=== PATIENT | male | born 1985 | race Caucasian/White ===

== ENCOUNTER 2023-09-22 15:31 | Inpatient (IN) | payer SELFPAY ==
[2023-09-22 16:01] VITALS: BMI 29.3
[2023-09-22] MEDS ORDERED: Morphine 4 MG/ML VIAL SLOW IVP PRN (16:55)
[2023-09-22] MEDS ORDERED: Acetaminophen 650 MG Suppository PR PRN (17:14)
[2023-09-22] MEDS: Ondansetron PF 4 MG/2 ML Vial IVP PRN (17:19)
[2023-09-22] MEDS ORDERED: hydrALAZINE 20 MG/ML VIAL SLOW IVP PRN (17:20)
[2023-09-22] MEDS ORDERED: Lorazepam 2 MG/ML VIAL IM PRN (17:28)
[2023-09-22] MEDS ORDERED: Electrolyte Replacement Protocol FS SCH (17:30)
[2023-09-22] MEDS: Thiamine HCl 200 MG/2 ML VIAL SLOW IVP SCH (17:58)
[2023-09-22] MEDS: Lactated Ringer's 1,000 ML IV SCH ×2 (18:35→21:49)
[2023-09-22] MEDS: fentaNYL 50 mcg/mL 1 mL Vial SLOW IVP PRN ×3 (18:48→23:37)
[2023-09-22] MEDS: Nicotine 14 MG PATCH TD PRN (18:49)
[2023-09-22] MEDS ORDERED: fentaNYL 50 mcg/mL 1 mL Vial SLOW IVP SCH (21:45)
[2023-09-22] MEDS: Lorazepam 2 MG/ML VIAL SLOW IVP PRN (23:50)
[2023-09-23] MEDS: fentaNYL 50 mcg/mL 1 mL Vial SLOW IVP PRN ×8 (01:47→22:52)
[2023-09-23] MEDS: Lorazepam 2 MG/ML VIAL SLOW IVP PRN (04:03)
[2023-09-23] MEDS: Lactated Ringer's 1,000 ML IV SCH ×3 (04:41→22:52)
[2023-09-23 06:15] LABS: #Eosinphils 0.1 thou/uL (0.0-0.7); #Monocytes 0.3 thou/uL (0.11-0.59); #Neutrophils 3.3 thou/uL (1.40-6.50); %Basophils 0.6 % (0.0-1.0); %Eosinophils 2.9 % (0.0-10.0); %Lymphocytes 21.8 % (21.0-51.0); %Monocytes 6.7 % (0.0-10.0); %Neutrophils 67.8 % (42.0-75.0); Hematocrit 35.5 % (42.0-52.0); Hemoglobin 12.2 g/dL (14.0-18.0); Mean Corpuscular HGB CONC 34.4 g/dL (32.0-36.0); Mean Corpuscular Hemoglobin 34.2 pg (27.0-31.0); Mean Corpuscular Volume 99.4 fl (78.0-98.0); Mean Platelet Volume 10.4 fL (7.4-10.4); Platelet Count 97 10x3/uL (130-400); RBC Distribution Width 12.7 % (11.5-14.5); Red Blood Cell (RBC) Count 3.57 mill/uL (4.70-6.10); White Blood Cell (WBC) Count 4.9 10x3/uL (4.8-10.8)
[2023-09-23 06:47] LABS: ALT (SGPT) 109 U/L (8-55); AST (SGOT) 129 U/L (5-34); Albumin 3.7 g/dL (3.5-5.0); Alkaline Phosphatase 99 U/L (40-110); Anion Gap 11 mmol/L (10-20); BUN (Urea Nitrogen) 8 mg/dL (8.9-20.6); Bilirubin, Total 2.8 mg/dL (0.2-1.2); Calc. Creatinine Clearance 164 mL/min (70-130); Calcium 8.4 mg/dL (7.8-10.44); Carbon Dioxide 24 mmol/L (22-29); Chloride 105 mmol/L (98-107); Estimated GFR 120; Globulin 2.4 g/dL (2.4-3.5); Glucose 101 mg/dL (70-105); Magnesium 1.3 mg/dL (1.6-2.6); Potassium 3.5 mmol/L (3.5-5.1); Protein, Total 6.1 g/dL (6.0-8.3); Sodium 136 mmol/L (136-145)
[2023-09-23] MEDS ORDERED: Magnesium Sulfate In Water 4 GM in Premix 1 BAG IVPB SCH (08:00)
[2023-09-23] MEDS: Pantoprazole 40 MG VIAL IVP SCH (08:46)
[2023-09-23] MEDS: Potassium Chloride 20 MEQ in Premix 1 BAG IVPB SCH ×2 (08:47→11:03)
[2023-09-23] MEDS ORDERED: traMADol HCl 50 MG TAB PO PRN (10:00)
[2023-09-23 14:08] LABS: Magnesium 2.4 mg/dL (1.6-2.6)
[2023-09-23 15:41] LABS: Potassium 3.9 mmol/L (3.5-5.1)
[2023-09-23] MEDS: Thiamine HCl 200 MG/2 ML VIAL SLOW IVP SCH (17:57)
[2023-09-23 22:35] LABS: Campy jejuni + coli by PCR Negative (Negative); STEC Shiga Toxin 1+2 Negative (Negative); Salmonella spp. by PCR Negative (Negative); Shigella spp + EIEC by PCR Negative (Negative)
[2023-09-24] MEDS: Lactated Ringer's 1,000 ML IV SCH ×5 (03:23→22:37)
[2023-09-24] MEDS: fentaNYL 50 mcg/mL 1 mL Vial SLOW IVP PRN ×5 (03:23→19:57)
[2023-09-24] MEDS: Ondansetron PF 4 MG/2 ML Vial IVP PRN (06:09)
[2023-09-24 06:10] LABS: #Eosinphils 0.2 thou/uL (0.0-0.7); #Monocytes 0.5 thou/uL (0.11-0.59); #Neutrophils 2.1 thou/uL (1.40-6.50); %Basophils 0.7 % (0.0-1.0); %Eosinophils 3.6 % (0.0-10.0); %Lymphocytes 38.2 % (21.0-51.0); %Monocytes 10.8 % (0.0-10.0); %Neutrophils 46.3 % (42.0-75.0); Hematocrit 37.4 % (42.0-52.0); Mean Corpuscular HGB CONC 34.8 g/dL (32.0-36.0); Mean Corpuscular Hemoglobin 34.7 pg (27.0-31.0); Mean Corpuscular Volume 99.7 fl (78.0-98.0); Mean Platelet Volume 10.6 fL (7.4-10.4); RBC Distribution Width 12.5 % (11.5-14.5); Red Blood Cell (RBC) Count 3.75 mill/uL (4.70-6.10); White Blood Cell (WBC) Count 4.5 10x3/uL (4.8-10.8)
[2023-09-24 06:34] LABS: ALT (SGPT) 144 U/L (8-55); AST (SGOT) 189 U/L (5-34); Albumin 3.9 g/dL (3.5-5.0); Alkaline Phosphatase 129 U/L (40-110); Anion Gap 13 mmol/L (10-20); BUN (Urea Nitrogen) 5 mg/dL (8.9-20.6); Bilirubin, Total 1.9 mg/dL (0.2-1.2); Calc. Creatinine Clearance 158 mL/min (70-130); Calcium 8.9 mg/dL (7.8-10.44); Carbon Dioxide 23 mmol/L (22-29); Chloride 104 mmol/L (98-107); Estimated GFR 118; Globulin 2.5 g/dL (2.4-3.5); Glucose 92 mg/dL (70-105); Lipase 131 U/L (8-78); Magnesium 1.7 mg/dL (1.6-2.6); Potassium 3.8 mmol/L (3.5-5.1); Protein, Total 6.4 g/dL (6.0-8.3); Sodium 136 mmol/L (136-145)
[2023-09-24 06:48] LABS: Platelet Count 109 10x3/uL (130-400)
[2023-09-24] MEDS ORDERED: Magnesium 2 GM/50 ML(in water) 2 GM in Premix 1 BAG IVPB SCH (08:00)
[2023-09-24] MEDS ORDERED: Losartan 25 MG TAB PO SCH (09:00)
[2023-09-24] MEDS: Amlodipine 5 MG TAB PO SCH (09:14)
[2023-09-24] MEDS: Losartan 25 MG TAB PO SCH ×2 (09:15→20:04)
[2023-09-24] MEDS: Pantoprazole 40 MG VIAL IVP SCH (09:16)
[2023-09-24] MEDS: HYDROcodone/Acetaminophen 5/325 mg Tablet PO PRN ×2 (15:02→22:28)
[2023-09-24] MEDS: Thiamine HCl 200 MG/2 ML VIAL SLOW IVP SCH (17:37)
[2023-09-24] MEDS: Nicotine 14 MG PATCH TD PRN (20:23)
[2023-09-24] MEDS: Ketorolac Tromethamine 30 MG/ML VIAL IVP PRN (22:28)
[2023-09-25] MEDS: fentaNYL 50 mcg/mL 1 mL Vial SLOW IVP PRN ×4 (06:07→23:26)
[2023-09-25] MEDS: Lactated Ringer's 1,000 ML IV SCH ×3 (06:10→23:32)
[2023-09-25] MEDS: hydrALAZINE 20 MG/ML VIAL SLOW IVP PRN (06:23)
[2023-09-25] MEDS ORDERED: FLU VACC QS2023-24(6MOS UP)/PF 60 MCG/0.5 ML SYRINGE IM ONE (09:00)
[2023-09-25] MEDS: Amlodipine 5 MG TAB PO SCH (09:07)
[2023-09-25] MEDS: Thiamine 100 MG TAB PO SCH (09:07)
[2023-09-25] MEDS: Losartan 25 MG TAB PO SCH ×2 (09:08→21:01)
[2023-09-25] MEDS: HYDROcodone/Acetaminophen 5/325 mg Tablet PO PRN ×2 (09:08→21:00)
[2023-09-25] MEDS: Pantoprazole 40 MG VIAL IVP SCH (09:11)
[2023-09-25] MEDS: Nicotine 14 MG PATCH TD PRN (09:29)
[2023-09-25] MEDS: Ondansetron PF 4 MG/2 ML Vial IVP PRN (12:11)
[2023-09-26] MEDS: HYDROcodone/Acetaminophen 5/325 mg Tablet PO PRN (04:18)
[2023-09-26] MEDS: Lactated Ringer's 1,000 ML IV SCH ×2 (04:23→10:54)
[2023-09-26 08:50] VITALS: TEMP 97.6
[2023-09-26] MEDS: Pantoprazole 40 MG VIAL IVP SCH (08:52)
[2023-09-26] MEDS: Losartan 25 MG TAB PO SCH (08:52)
[2023-09-26] MEDS: Thiamine 100 MG TAB PO SCH (08:52)
[2023-09-26] MEDS: Ketorolac Tromethamine 30 MG/ML VIAL IVP PRN (08:55)
[2023-09-26] MEDS ORDERED: Amlodipine 10 MG TAB PO SCH (09:00)
[2023-09-26] MEDS: hydrALAZINE 20 MG/ML VIAL SLOW IVP PRN (10:32)
[2023-09-26] MEDS: fentaNYL 50 mcg/mL 1 mL Vial SLOW IVP PRN (10:35)
[2023-09-26] MEDS ORDERED: Magnesium 2 GM/50 ML(in water) 2 GM in Premix 1 BAG IVPB SCH (12:00)
[2023-09-26 13:36] VITALS: BP 149/88
== END 2023-09-26 13:19 | disposition home or self-care (01) | DRG 440 ==
LOC: MSONC 15:31
PROVIDERS: ADMIT Hospitalist; ATTEND Family Medicine
DX: K85.20 Alcohol induced acute pancreatitis without necrosis or infection (principal); I10 Essential (primary) hypertension; F17.210 Nicotine dependence, cigarettes, uncomplicated; D69.6 Thrombocytopenia, unspecified; R19.7 Diarrhea, unspecified; K76.0 Fatty (change of) liver, not elsewhere classified; E83.42 Hypomagnesemia; F10.10 Alcohol abuse, uncomplicated; Z90.49 Acquired absence of other specified parts of digestive tract; Z98.890 Other specified postprocedural states; Z88.0 Allergy status to penicillin
CPT/HCPCS: 36415; 76705; 80053; 83690; 83735; 84100; 85025; 87324; 87449; 87505; 90471; 90686; C9113; G0008; J0360; J1885; J2060; J2270; J2405; J3010; J3411; J3475; J3480; J7120

== ENCOUNTER 2023-11-21 07:57 | Inpatient (IN) | payer OTHER, SELFPAY ==
[2023-11-21] MEDS ORDERED: Iopamidol-370 76% 500 ML MDV (1 ML CHARGE) ONE (10:46)
[2023-11-21] MEDS ORDERED: Acetaminophen 650 MG Suppository PR PRN (12:34)
[2023-11-21 12:50] LABS: #Eosinphils 0.1 thou/uL (0.0-0.7); #Monocytes 1.2 thou/uL (0.11-0.59); #Neutrophils 14.6 thou/uL (1.40-6.50); %Basophils 0.2 % (0.0-1.0); %Eosinophils 0.3 % (0.0-10.0); %Lymphocytes 11.1 % (21.0-51.0); %Monocytes 6.9 % (0.0-10.0); %Neutrophils 81.1 % (42.0-75.0); Hemoglobin 14.9 g/dL (14.0-18.0); Mean Corpuscular HGB CONC 35.5 g/dL (32.0-36.0); Mean Corpuscular Hemoglobin 33.5 pg (27.0-31.0); Mean Corpuscular Volume 94.4 fl (78.0-98.0); Mean Platelet Volume 10.5 fL (7.4-10.4); Platelet Count 159 10x3/uL (130-400); RBC Distribution Width 13.5 % (11.5-14.5); Red Blood Cell (RBC) Count 4.45 mill/uL (4.70-6.10)
[2023-11-21 13:14] LABS: ALT (SGPT) 50 U/L (8-55); AST (SGOT) 75 U/L (5-34); Albumin 3.6 g/dL (3.5-5.0); Alkaline Phosphatase 73 U/L (40-110); Anion Gap 15 mmol/L (10-20); BUN (Urea Nitrogen) 13 mg/dL (8.9-20.6); Bilirubin, Total 2.8 mg/dL (0.2-1.2); Calc. Creatinine Clearance 171 mL/min (70-130); Calcium 8.3 mg/dL (7.8-10.44); Carbon Dioxide 23 mmol/L (22-29); Chloride 100 mmol/L (98-107); Estimated GFR 120; Globulin 2.6 g/dL (2.4-3.5); Glucose 90 mg/dL (70-105); Lipase 957 U/L (8-78); Potassium 3.3 mmol/L (3.5-5.1); Protein, Total 6.2 g/dL (6.0-8.3); Sodium 135 mmol/L (136-145)
[2023-11-21] MEDS: Lactated Ringer's 1,000 ML IV SCH (13:30)
[2023-11-21] MEDS ORDERED: Potassium Chloride 40 MEQ in Premix 1 BAG IVPB SCH (13:30)
[2023-11-21] MEDS: Morphine 4 MG/ML VIAL SLOW IVP PRN (13:31)
[2023-11-21] MEDS: Nicotine 14 MG PATCH TD PRN (13:32)
[2023-11-21] MEDS: Folic Acid 1 MG TAB PO SCH (13:46)
[2023-11-21] MEDS: Multivit, Therapeutic 1 TAB PO SCH (13:46)
[2023-11-21] MEDS: LevoFLOXacin 750 mg/D5W 750 MG in Premix 1 BAG IVPB SCH (13:46)
[2023-11-21] MEDS: Potassium Chloride 20 MEQ in Premix 1 BAG IVPB SCH (13:47)
[2023-11-21] MEDS: metroNIDAZOLE 500 MG in Premix 1 BAG IVPB SCH ×2 (14:08→22:58)
[2023-11-21] MEDS ORDERED: hydrALAZINE 20 MG/ML VIAL SLOW IVP PRN (14:24)
[2023-11-21] MEDS: Acetaminophen 325 MG TAB PO PRN (16:06)
[2023-11-21] MEDS: Lorazepam 2 MG/ML VIAL SLOW IVP PRN (16:20)
[2023-11-21] MEDS ORDERED: Losartan 25 MG TAB PO SCH (21:00)
[2023-11-21] MEDS: Ondansetron PF 4 MG/2 ML Vial IVP PRN (22:35)
[2023-11-21] MEDS: Famotidine/PF 20 mg/2ml Vial SLOW IVP SCH (22:42)
[2023-11-21] MEDS: Losartan 25 MG TAB PO SCH (22:42)
[2023-11-22] MEDS: HYDROcodone/Acetaminophen 5/325 mg Tablet PO PRN (02:04)
[2023-11-22 06:40] LABS: #Monocytes 0.9 thou/uL (0.11-0.59); #Neutrophils 10.6 thou/uL (1.40-6.50); %Basophils 0.1 % (0.0-1.0); %Eosinophils 0.3 % (0.0-10.0); %Lymphocytes 13.1 % (21.0-51.0); %Monocytes 6.9 % (0.0-10.0); %Neutrophils 78.9 % (42.0-75.0); Hematocrit 37.3 % (42.0-52.0); Mean Corpuscular HGB CONC 34.9 g/dL (32.0-36.0); Mean Corpuscular Hemoglobin 33.2 pg (27.0-31.0); Mean Corpuscular Volume 95.4 fl (78.0-98.0); Platelet Count 111 10x3/uL (130-400); RBC Distribution Width 13.3 % (11.5-14.5); Red Blood Cell (RBC) Count 3.91 mill/uL (4.70-6.10); White Blood Cell (WBC) Count 13.4 10x3/uL (4.8-10.8)
[2023-11-22 06:46] LABS: ALT (SGPT) 45 U/L (8-55); AST (SGOT) 76 U/L (5-34); Albumin 3.3 g/dL (3.5-5.0); Alkaline Phosphatase 89 U/L (40-110); Anion Gap 10 mmol/L (10-20); BUN (Urea Nitrogen) 7 mg/dL (8.9-20.6); Bilirubin, Total 3.1 mg/dL (0.2-1.2); Calc. Creatinine Clearance 181 mL/min (70-130); Calcium 8.2 mg/dL (7.8-10.44); Carbon Dioxide 25 mmol/L (22-29); Chloride 101 mmol/L (98-107); Estimated GFR 122; Globulin 2.3 g/dL (2.4-3.5); Glucose 83 mg/dL (70-105); Lipase 339 U/L (8-78); Magnesium 1.6 mg/dL (1.6-2.6); Potassium 3.1 mmol/L (3.5-5.1); Protein, Total 5.6 g/dL (6.0-8.3); Sodium 133 mmol/L (136-145)
[2023-11-22] MEDS: Magnesium 2 GM/50 ML(in water) 2 GM in Premix 1 BAG IVPB SCH ×2 (07:31→11:54)
[2023-11-22] MEDS: Potassium Chloride 20 MEQ TAB PO SCH (07:32)
[2023-11-22] MEDS: Folic Acid 1 MG TAB PO SCH (08:20)
[2023-11-22] MEDS: Multivit, Therapeutic 1 TAB PO SCH (08:20)
[2023-11-22] MEDS: Thiamine 100 MG TAB PO SCH (11:54)
[2023-11-22] MEDS: Potassium Chloride 20 MEQ in Premix 1 BAG IVPB SCH (11:58)
[2023-11-22] MEDS: Potassium Chloride 40 MEQ in Premix 1 BAG IVPB SCH (12:22)
[2023-11-22] MEDS: LevoFLOXacin 750 mg/D5W 750 MG in Premix 1 BAG IVPB SCH (14:43)
[2023-11-22] MEDS: Enoxaparin 40 MG (0.4 mL) SYRINGE SC SCH (20:32)
[2023-11-22] MEDS: Senokot S 8.6-50 MG TAB PO SCH (20:36)
[2023-11-23 05:14] LABS: #Eosinphils 0.1 thou/uL (0.0-0.7); #Monocytes 1.2 thou/uL (0.11-0.59); #Neutrophils 10.5 thou/uL (1.40-6.50); %Basophils 0.1 % (0.0-1.0); %Eosinophils 0.6 % (0.0-10.0); %Lymphocytes 11.6 % (21.0-51.0); %Monocytes 8.7 % (0.0-10.0); %Neutrophils 78.3 % (42.0-75.0); Hematocrit 34.4 % (42.0-52.0); Hemoglobin 11.6 g/dL (14.0-18.0); Mean Corpuscular HGB CONC 33.7 g/dL (32.0-36.0); Mean Corpuscular Hemoglobin 32.8 pg (27.0-31.0); Mean Corpuscular Volume 97.2 fl (78.0-98.0); Mean Platelet Volume 10.3 fL (7.4-10.4); RBC Distribution Width 13.2 % (11.5-14.5); Red Blood Cell (RBC) Count 3.54 mill/uL (4.70-6.10); White Blood Cell (WBC) Count 13.4 10x3/uL (4.8-10.8)
[2023-11-23 05:56] LABS: ALT (SGPT) 47 U/L (8-55); AST (SGOT) 82 U/L (5-34); Albumin 3.3 g/dL (3.5-5.0); Alkaline Phosphatase 103 U/L (40-110); Anion Gap 12 mmol/L (10-20); BUN (Urea Nitrogen) 6 mg/dL (8.9-20.6); Bilirubin, Total 3.1 mg/dL (0.2-1.2); Calc. Creatinine Clearance 191 mL/min (70-130); Calcium 8.8 mg/dL (7.8-10.44); Carbon Dioxide 24 mmol/L (22-29); Chloride 102 mmol/L (98-107); Estimated GFR 124; Globulin 2.4 g/dL (2.4-3.5); Glucose 85 mg/dL (70-105); Magnesium 1.6 mg/dL (1.6-2.6); Potassium 3.6 mmol/L (3.5-5.1); Protein, Total 5.7 g/dL (6.0-8.3); Sodium 134 mmol/L (136-145)
[2023-11-23 06:33] LABS: Platelet Count 114 10x3/uL (130-400)
[2023-11-23] MEDS: Amlodipine 5 MG TAB PO SCH ×2 (13:43→21:57)
[2023-11-23] MEDS: Morphine 4 MG/ML VIAL SLOW IVP PRN (13:45)
[2023-11-23] MEDS: HYDROcodone/Acetaminophen 10/325 mg Tablet PO PRN (17:32)
[2023-11-24 05:06] LABS: #Eosinphils 0.2 thou/uL (0.0-0.7); #Monocytes 1.3 thou/uL (0.11-0.59); #Neutrophils 8.9 thou/uL (1.40-6.50); %Basophils 0.1 % (0.0-1.0); %Eosinophils 1.4 % (0.0-10.0); %Lymphocytes 16.3 % (21.0-51.0); %Monocytes 10.6 % (0.0-10.0); %Neutrophils 71.2 % (42.0-75.0); Hematocrit 33.8 % (42.0-52.0); Hemoglobin 11.7 g/dL (14.0-18.0); Mean Corpuscular HGB CONC 34.6 g/dL (32.0-36.0); Mean Corpuscular Hemoglobin 33.4 pg (27.0-31.0); Mean Corpuscular Volume 96.6 fl (78.0-98.0); Mean Platelet Volume 10.5 fL (7.4-10.4); Platelet Count 139 10x3/uL (130-400); RBC Distribution Width 13.1 % (11.5-14.5); White Blood Cell (WBC) Count 12.5 10x3/uL (4.8-10.8)
[2023-11-24 05:30] LABS: Anion Gap 10 mmol/L (10-20); BUN (Urea Nitrogen) 7 mg/dL (8.9-20.6); Calc. Creatinine Clearance 194 mL/min (70-130); Calcium 9.2 mg/dL (7.8-10.44); Carbon Dioxide 26 mmol/L (22-29); Chloride 101 mmol/L (98-107); Estimated GFR 125; Glucose 90 mg/dL (70-105); Magnesium 1.4 mg/dL (1.6-2.6); Potassium 3.2 mmol/L (3.5-5.1); Sodium 134 mmol/L (136-145)
[2023-11-24] MEDS: Ketorolac Tromethamine 30 MG (1 mL) VIAL IVP SCH (05:54)
[2023-11-24] MEDS ORDERED: Magnesium Sulfate 4 GM in Sodium Chloride 0.9% 250 ML 250 ML IVPB SCH (08:45)
[2023-11-24] MEDS: Magnesium Sulfate In Water 4 GM in Premix 1 BAG IVPB SCH (10:48)
[2023-11-24] MEDS: Potassium Chloride 20 MEQ TAB PO SCH ×2 (10:49→13:16)
[2023-11-24] MEDS ORDERED: hydrALAZINE 25 MG TAB PO PRN (17:12)
[2023-11-25] MEDS: Calcium Carbonate 500 MG ChewTAB PO PRN (02:38)
[2023-11-25 05:31] LABS: #Eosinphils 0.3 thou/uL (0.0-0.7); #Monocytes 1.3 thou/uL (0.11-0.59); #Neutrophils 7.1 thou/uL (1.40-6.50); %Basophils 0.3 % (0.0-1.0); %Eosinophils 2.4 % (0.0-10.0); %Lymphocytes 17.5 % (21.0-51.0); %Monocytes 12.4 % (0.0-10.0); %Neutrophils 66.7 % (42.0-75.0); Hematocrit 32.6 % (42.0-52.0); Hemoglobin 11.2 g/dL (14.0-18.0); Mean Corpuscular HGB CONC 34.4 g/dL (32.0-36.0); Mean Corpuscular Hemoglobin 33.6 pg (27.0-31.0); Mean Corpuscular Volume 97.9 fl (78.0-98.0); Mean Platelet Volume 10.2 fL (7.4-10.4); Platelet Count 161 10x3/uL (130-400); Red Blood Cell (RBC) Count 3.33 mill/uL (4.70-6.10); White Blood Cell (WBC) Count 10.6 10x3/uL (4.8-10.8)
[2023-11-25 05:53] LABS: ALT (SGPT) 55 U/L (8-55); AST (SGOT) 94 U/L (5-34); Albumin 3.8 g/dL (3.5-5.0); Alkaline Phosphatase 154 U/L (40-110); Anion Gap 13 mmol/L (10-20); BUN (Urea Nitrogen) 5 mg/dL (8.9-20.6); Bilirubin, Total 1.5 mg/dL (0.2-1.2); Calc. Creatinine Clearance 183 mL/min (70-130); Calcium 9.4 mg/dL (7.8-10.44); Carbon Dioxide 25 mmol/L (22-29); Chloride 103 mmol/L (98-107); Estimated GFR 123; Globulin 2.7 g/dL (2.4-3.5); Glucose 88 mg/dL (70-105); Magnesium 1.5 mg/dL (1.6-2.6); Potassium 3.8 mmol/L (3.5-5.1); Protein, Total 6.5 g/dL (6.0-8.3); Sodium 137 mmol/L (136-145)
[2023-11-25 08:15] VITALS: BMI 30.2
[2023-11-25] MEDS ORDERED: Magnesium Sulfate 4 GM in Sodium Chloride 0.9% 250 ML 250 ML IVPB SCH (11:00)
[2023-11-25] MEDS: Morphine 4 MG/ML VIAL SLOW IVP PRN (11:39)
[2023-11-25] MEDS: Magnesium Sulfate In Water 4 GM in Premix 1 BAG IVPB SCH (11:50)
[2023-11-25] MEDS ORDERED: Acetaminophen 325 MG TAB PO PRN (14:55)
[2023-11-25] MEDS: Melatonin 3 MG TAB PO PRN (23:17)
[2023-11-26 06:38] LABS: #Eosinphils 0.3 thou/uL (0.0-0.7); #Neutrophils 4.9 thou/uL (1.40-6.50); %Basophils 0.4 % (0.0-1.0); %Eosinophils 3.4 % (0.0-10.0); %Lymphocytes 21.8 % (21.0-51.0); %Neutrophils 60.7 % (42.0-75.0); Hematocrit 32.8 % (42.0-52.0); Hemoglobin 11.3 g/dL (14.0-18.0); Mean Corpuscular HGB CONC 34.5 g/dL (32.0-36.0); Mean Corpuscular Hemoglobin 33.1 pg (27.0-31.0); Mean Corpuscular Volume 96.2 fl (78.0-98.0); Mean Platelet Volume 10.2 fL (7.4-10.4); Platelet Count 171 10x3/uL (130-400); RBC Distribution Width 12.9 % (11.5-14.5); Red Blood Cell (RBC) Count 3.41 mill/uL (4.70-6.10)
[2023-11-26 07:12] LABS: ALT (SGPT) 46 U/L (8-55); AST (SGOT) 60 U/L (5-34); Albumin 3.4 g/dL (3.5-5.0); Alkaline Phosphatase 155 U/L (40-110); Anion Gap 13 mmol/L (10-20); BUN (Urea Nitrogen) 4 mg/dL (8.9-20.6); Bilirubin, Total 1.3 mg/dL (0.2-1.2); Calc. Creatinine Clearance 196 mL/min (70-130); Calcium 9.1 mg/dL (7.8-10.44); Carbon Dioxide 22 mmol/L (22-29); Chloride 104 mmol/L (98-107); Estimated GFR 125; Globulin 2.6 g/dL (2.4-3.5); Glucose 84 mg/dL (70-105); Magnesium 1.5 mg/dL (1.6-2.6); Potassium 3.3 mmol/L (3.5-5.1); Sodium 136 mmol/L (136-145)
[2023-11-26] MEDS: Magnesium Oxide 400 MG TAB PO SCH ×2 (13:22→20:12)
[2023-11-26] MEDS: Morphine 4 MG/ML VIAL SLOW IVP PRN (13:23)
[2023-11-27 05:22] LABS: ALT (SGPT) 44 U/L (8-55); AST (SGOT) 51 U/L (5-34); Albumin 3.3 g/dL (3.5-5.0); Alkaline Phosphatase 159 U/L (40-110); Anion Gap 10 mmol/L (10-20); BUN (Urea Nitrogen) 4 mg/dL (8.9-20.6); Bilirubin, Total 0.7 mg/dL (0.2-1.2); Calc. Creatinine Clearance 202 mL/min (70-130); Calcium 8.8 mg/dL (7.8-10.44); Carbon Dioxide 23 mmol/L (22-29); Chloride 107 mmol/L (98-107); Estimated GFR 126; Globulin 2.5 g/dL (2.4-3.5); Glucose 92 mg/dL (70-105); Lipase 120 U/L (8-78); Potassium 3.4 mmol/L (3.5-5.1); Protein, Total 5.8 g/dL (6.0-8.3); Sodium 137 mmol/L (136-145)
[2023-11-27] MEDS: HYDROcodone/Acetaminophen 5/325 mg Tablet PO PRN (09:16)
[2023-11-28 16:02] VITALS: BP 137/89; TEMP 98.1
== END 2023-11-28 16:03 | disposition home or self-care (01) | DRG 439 ==
LOC: 2NO 09:37 → OBSVTOIN 12:08 → T4-A 11-25 10:48
PROVIDERS: ADMIT Internal Medicine; ATTEND Emergency Medicine
DX: K85.20 Alcohol induced acute pancreatitis without necrosis or infection (principal); E87.1 Hypo-osmolality and hyponatremia; N17.9 Acute kidney failure, unspecified; I10 Essential (primary) hypertension; F10.10 Alcohol abuse, uncomplicated; F17.210 Nicotine dependence, cigarettes, uncomplicated; K70.10 Alcoholic hepatitis without ascites; E87.6 Hypokalemia; E83.42 Hypomagnesemia; R74.01 Elevation of levels of liver transaminase levels; R94.5 Abnormal results of liver function studies; K70.30 Alcoholic cirrhosis of liver without ascites; Z88.0 Allergy status to penicillin; Z79.899 Other long term (current) drug therapy; Z90.89 Acquired absence of other organs
CPT/HCPCS: 36415; 74177; 76705; 80048; 80053; 82105; 83690; 83735; 85025; J1650; J1885; J1956; J2060; J2270; J2405; J3475; J3480; J7120; Q9967; S0028

== ENCOUNTER 2024-04-13 14:44 | Inpatient (IN) | payer OTHER, SELFPAY ==
[2024-04-13] MEDS ORDERED: Morphine 4 MG/ML VIAL ONE ×3 (15:24→19:40)
[2024-04-13] MEDS ORDERED: Ondansetron PF 4 MG/2 ML Vial ONE (15:24)
[2024-04-13 15:40] LABS: #Basophils 0.05 10x3/uL (0.0-0.2); %Basophils 0.3 % (0.0-1.0); %Eosinophils 0.3 % (0.0-10.0); %Lymphocytes 12.6 % (21.0-51.0); %Neutrophils 81.1 % (42.0-75.0); Hematocrit 45.6 % (42.0-52.0); Hemoglobin 16.4 g/dL (14.0-18.0); Mean Corpuscular Hemoglobin 33.7 pg (27.0-31.0); Mean Corpuscular Volume 93.6 fL (78.0-98.0); Mean Platelet Volume 9.7 fL (7.4-10.4); Platelet Count 262 10x3/uL (130-400); RBC Distribution Width 14.5 % (11.5-14.5); Red Blood Cell (RBC) Count 4.87 mill/uL (4.70-6.10)
[2024-04-13] MEDS ORDERED: Iopamidol-370 76% 500 ML MDV (1 ML CHARGE) ONE (16:19)
[2024-04-13 16:23] LABS: Amphetamine Not Detected (NotDetected); Barbiturates Screen Not Detected (NotDetected); Benzodiazepine Screen Not Detected (NotDetected); Cocaine Metabolite Screen Not Detected (NotDetected); Methadone Not Detected (NotDetected); Methamphetamine Not Detected (NotDetected); Opiate Screen Not Detected (NotDetected); Oxycodone Screen Not Detected (NotDetected); Phencyclidine (PCP) Not Detected (NotDetected); THC/Cannabinoid Screen Detected (NotDetected); Tricyclic Screen Not Detected (NotDetected)
[2024-04-13 16:27] LABS: Bacteria/HPF None Seen HPF (None Seen); Bilirubin Negative (Negative); Blood, Urine Trace (Negative); CAUTI Indications for Culture Acute Hematuria; Clarity Clear (Clear); Glucose, Urine (Dipstick) Normal (Negative); Ketone, Urine Negative (Negative); Leukocyte Negative Leu/uL (Negative); Nitrite Negative (Negative); Protein, Urine (Dipstick) 50 mg/dL (Neg-Trace); RBC/HPF 0-3 HPF (0-3); Specific Gravity, Urine 1.021 (1.002-1.036); Squamous Epithelial 0-3 HPF (0-3); Urobilinogen Normal mg/dL (Less than 2); WBC/HPF 0-3 HPF (0-3); pH, Urine 5.5 (5.0-9.0)
[2024-04-13 16:28] LABS: ALT (SGPT) 81 U/L (8-55); AST (SGOT) 67 U/L (5-34); Alkaline Phosphatase 103 U/L (40-110); Anion Gap 20 mmol/L (10-20); BUN (Urea Nitrogen) 14 mg/dL (8.9-20.6); Bilirubin, Total 0.8 mg/dL (0.2-1.2); Calc. Creatinine Clearance 0 mL/min (70-130); Calcium 8.7 mg/dL (7.8-10.44); Carbon Dioxide 14 mmol/L (22-29); Chloride 107 mmol/L (98-107); Estimated GFR 125; Glucose 119 mg/dL (70-105); Magnesium 1.5 mg/dL (1.6-2.6); Sodium 137 mmol/L (136-145)
[2024-04-13 16:29] LABS: Urine Culture Reflex No No
[2024-04-13 16:37] LABS: Lipase 520 U/L (8-78)
[2024-04-13 16:37] LABS: Acetaminophen Less than 10 mcg/mL (10.0-30.0); Alcohol 141.1 mg/dL (Less than 10); Salicylate Less than 8.0 mg/dL (15.0-30.0)
[2024-04-13 16:42] LABS: Troponin I Less than 0.010 ng/mL (< 0.028)
[2024-04-13] MEDS ORDERED: Magnesium 2 GM/50 ML BAG (IN WATER) ONE (17:00)
[2024-04-13] MEDS ORDERED: Thiamine HCl 200 MG/2 ML VIAL ONE (17:00)
[2024-04-13] MEDS ORDERED: hydrALAZINE 20 MG/ML VIAL ONE (19:14)
[2024-04-13] MEDS ORDERED: fentaNYL 50 mcg/mL 1 mL Vial ONE (19:14)
[2024-04-13] MEDS ORDERED: Labetalol HCl 100 MG/20 ML VIAL ONE (20:13)
[2024-04-13] MEDS ORDERED: Lorazepam 1 MG TAB PO PRN ×2 (20:49→22:37)
[2024-04-13] MEDS ORDERED: Lorazepam 2 MG/ML VIAL IM PRN ×2 (20:49→22:30)
[2024-04-13] MEDS ORDERED: Electrolyte Replacement Protocol 1 EACH FS SCH (21:00)
[2024-04-13] MEDS: Losartan 25 MG TAB PO SCH (21:38)
[2024-04-13] MEDS: Amlodipine 5 MG TAB PO SCH (21:39)
[2024-04-13] MEDS: HYDROcodone/Acetaminophen 5/325 mg Tablet PO PRN (21:39)
[2024-04-13] MEDS: Magnesium Oxide 400 MG TAB PO SCH (21:39)
[2024-04-13] MEDS: Sodium Chloride 0.9% 1,000 ML IV SCH (21:52)
[2024-04-13] MEDS ORDERED: diphenhydrAMINE 50 MG/ML VIAL IVP PRN ×2 (21:56→22:01)
[2024-04-13] MEDS ORDERED: HYDROmorphone/PF 10 MG in Sodium Chloride 0.9% 99 ML IV PRN (21:56)
[2024-04-13] MEDS ORDERED: diphenhydrAMINE 50 MG/ML VIAL IM PRN ×2 (21:56→22:01)
[2024-04-13] MEDS ORDERED: Ondansetron PF 4 MG/2 ML Vial IVP PRN (21:56)
[2024-04-13] MEDS ORDERED: diphenhydrAMINE 25 MG CAP PO PRN (21:56)
[2024-04-13] MEDS ORDERED: Naloxone HCl 0.4 mg/ml Vial IV PRN ×2 (21:56→22:01)
[2024-04-13] MEDS ORDERED: Promethazine HCl 25 MG/ML VIAL IM PRN (21:56)
[2024-04-13] MEDS: Pancrelipase DR 12,000 1 CAP PO SCH (21:59)
[2024-04-13] MEDS: Thiamine HCl 200 MG/2 ML VIAL SLOW IVP SCH (21:59)
[2024-04-13] MEDS ORDERED: Communication Order-Pharmacy FS SCH ×2 (22:00→22:15)
[2024-04-13] MEDS: Lorazepam 1 MG TAB PO SCH (22:00)
[2024-04-13 22:29] VITALS: BMI 29.3
[2024-04-13] MEDS: Sodium Bicarb 50 mEq/50 ML VIAL IVP SCH (22:31)
[2024-04-13] MEDS: HYDROmorphone/PF 10 MG in Sodium Chloride 0.9% 99 ML IVPB PRN (23:18)
[2024-04-14] MEDS: Ondansetron PF 4 MG/2 ML Vial IVP PRN (00:33)
[2024-04-14] MEDS: hydrALAZINE 20 MG/ML VIAL SLOW IVP PRN (00:33)
[2024-04-14] MEDS: Labetalol HCl 100 MG/20 ML VIAL SLOW IVP PRN (01:37)
[2024-04-14 04:21] LABS: #Basophils 0.04 10x3/uL (0.0-0.2); #Eosinphils Less than 0.03 10x3/uL (0.0-0.7); %Basophils 0.2 % (0.0-1.0); %Lymphocytes 5.8 % (21.0-51.0); %Monocytes 4.9 % (0.0-10.0); %Neutrophils 88.4 % (42.0-75.0); Hematocrit 49.9 % (42.0-52.0); Hemoglobin 17.6 g/dL (14.0-18.0); Mean Corpuscular HGB CONC 35.3 g/dL (32.0-36.0); Mean Corpuscular Hemoglobin 32.5 pg (27.0-31.0); Mean Corpuscular Volume 92.1 fL (78.0-98.0); Mean Platelet Volume 9.6 fL (7.4-10.4); Platelet Count 230 10x3/uL (130-400); RBC Distribution Width 14.5 % (11.5-14.5); Red Blood Cell (RBC) Count 5.42 mill/uL (4.70-6.10)
[2024-04-14 04:40] LABS: ALT (SGPT) 61 U/L (8-55); AST (SGOT) 47 U/L (5-34); Albumin 3.4 g/dL (3.5-5.0); Alkaline Phosphatase 91 U/L (40-110); Anion Gap 16 mmol/L (10-20); BUN (Urea Nitrogen) 11 mg/dL (8.9-20.6); Bilirubin, Total 2.4 mg/dL (0.2-1.2); Calc. Creatinine Clearance 187 mL/min (70-130); Calcium 8.3 mg/dL (7.8-10.44); Carbon Dioxide 20 mmol/L (22-29); Chloride 106 mmol/L (98-107); Estimated GFR 124; Globulin 2.5 g/dL (2.4-3.5); Glucose 122 mg/dL (70-105); Magnesium 1.5 mg/dL (1.6-2.6); Potassium 3.4 mmol/L (3.5-5.1); Protein, Total 5.9 g/dL (6.0-8.3); Sodium 139 mmol/L (136-145)
[2024-04-14 04:43] LABS: Lipase 814 U/L (8-78)
[2024-04-14] MEDS ORDERED: Lorazepam 1 MG TAB PO SCH (05:00)
[2024-04-14] MEDS: Promethazine HCl 25 MG/ML VIAL IM PRN (05:14)
[2024-04-14] MEDS: Magnesium 2 GM/50 ML(in water) 2 GM in Premix 1 BAG IVPB SCH (05:53)
[2024-04-14] MEDS: Sodium Chloride 0.9% 500 ML IV SCH (06:09)
[2024-04-14] MEDS: Potassium Chloride 20 MEQ in Premix 1 BAG IVPB SCH (06:46)
[2024-04-14] MEDS: Pancrelipase DR 12,000 1 CAP PO SCH (08:48)
[2024-04-14] MEDS: Multivit, Therapeutic 1 TAB PO SCH (08:50)
[2024-04-14] MEDS: Folic Acid 1 MG TAB PO SCH (08:50)
[2024-04-14] MEDS: Lorazepam 1 MG TAB PO PRN (08:56)
[2024-04-14] MEDS: Lactated Ringer's 1,000 ML IV SCH (12:58)
[2024-04-14] MEDS: diphenhydrAMINE 25 MG CAP PO PRN (15:37)
[2024-04-14] MEDS: Melatonin 3 MG TAB PO PRN (18:30)
[2024-04-14] MEDS ORDERED: Lorazepam 1 MG TAB PO PRN ×2 (20:50)
[2024-04-14] MEDS: Ondansetron ODT 4 MG TAB PO PRN (23:05)
[2024-04-15] MEDS: Pantoprazole 40 MG VIAL IVP SCH ×2 (01:12→08:22)
[2024-04-15 08:51] LABS: Hematocrit 42.3 % (42.0-52.0); Hemoglobin 14.7 g/dL (14.0-18.0); Mean Corpuscular HGB CONC 34.8 g/dL (32.0-36.0); Mean Corpuscular Hemoglobin 33.4 pg (27.0-31.0); Mean Corpuscular Volume 96.1 fL (78.0-98.0); Mean Platelet Volume 9.4 fL (7.4-10.4); Platelet Count 113 10x3/uL (130-400); RBC Distribution Width 14.7 % (11.5-14.5)
[2024-04-15 09:19] LABS: Anisocytosis SLIGHT = 6-15 cells HPF (0-5); Lymphocytes 2 % (21-51); Macrocytosis SLIGHT = 6-15 cells HPF (0-5); Monocytes 1 % (0-10); Neutrophil 96 % (42-75); Platelet Adequacy Comment Platelets Decreased; Reactive Lymphocytes 1 % (0-10)
[2024-04-15 09:20] LABS: ALT (SGPT) 41 U/L (8-55); AST (SGOT) 45 U/L (5-34); Albumin 2.8 g/dL (3.5-5.0); Alkaline Phosphatase 97 U/L (40-110); Anion Gap 10 mmol/L (10-20); BUN (Urea Nitrogen) 6 mg/dL (8.9-20.6); Bilirubin, Total 2.7 mg/dL (0.2-1.2); Calc. Creatinine Clearance 210 mL/min (70-130); Carbon Dioxide 20 mmol/L (22-29); Chloride 105 mmol/L (98-107); Estimated GFR 129; Globulin 2.4 g/dL (2.4-3.5); Glucose 89 mg/dL (70-105); Potassium 3.1 mmol/L (3.5-5.1); Protein, Total 5.2 g/dL (6.0-8.3); Sodium 132 mmol/L (136-145)
[2024-04-15 11:44] LABS: Band 4 % (5-11); Eosinophils 3 % (0-10)
[2024-04-15] MEDS: Potassium Chloride 20 MEQ TAB PO SCH (13:06)
[2024-04-15] MEDS: Sodium Chloride 0.9% 1,000 ML IV SCH (17:37)
[2024-04-15] MEDS ORDERED: Lorazepam 1 MG TAB PO PRN ×2 (20:50)
[2024-04-15] MEDS ORDERED: Lorazepam 0.5 MG TAB PO SCH ×2 (23:00)
[2024-04-16 04:44] LABS: #Basophils 0.03 10x3/uL (0.0-0.2); %Basophils 0.4 % (0.0-1.0); %Eosinophils 1.6 % (0.0-10.0); %Lymphocytes 25.4 % (21.0-51.0); %Monocytes 8.9 % (0.0-10.0); Hemoglobin 14.2 g/dL (14.0-18.0); Mean Corpuscular HGB CONC 34.6 g/dL (32.0-36.0); Mean Corpuscular Hemoglobin 33.6 pg (27.0-31.0); Mean Corpuscular Volume 97.2 fL (78.0-98.0); Mean Platelet Volume 10.2 fL (7.4-10.4); Platelet Count 120 10x3/uL (130-400); RBC Distribution Width 14.6 % (11.5-14.5); Red Blood Cell (RBC) Count 4.22 mill/uL (4.70-6.10)
[2024-04-16 05:01] LABS: Anion Gap 11 mmol/L (10-20); BUN (Urea Nitrogen) 6 mg/dL (8.9-20.6); Calc. Creatinine Clearance 190 mL/min (70-130); Calcium 8.6 mg/dL (7.8-10.44); Carbon Dioxide 21 mmol/L (22-29); Chloride 106 mmol/L (98-107); Estimated GFR 125; Glucose 88 mg/dL (70-105); Lipase 261 U/L (8-78); Magnesium 1.5 mg/dL (1.6-2.6); Phosphorus 2.2 mg/dL (2.3-4.7); Potassium 3.3 mmol/L (3.5-5.1); Sodium 135 mmol/L (136-145)
[2024-04-16] MEDS: Magnesium 2 GM/50 ML(in water) 2 GM in Premix 1 BAG IVPB SCH (09:52)
[2024-04-16] MEDS: Potassium Chloride 20 MEQ TAB PO SCH (09:52)
[2024-04-16] MEDS: Sodium Chloride 0.9% 1,000 ML IV SCH (13:58)
[2024-04-16] MEDS: Potassium Phosphate 22 MMOL in Sodium Chloride 0.9% 250 ML 250 ML IVPB SCH (13:58)
[2024-04-16] MEDS ORDERED: Lorazepam 0.5 MG TAB PO PRN (20:50)
[2024-04-16] MEDS: Metoprolol Tartrate 25 MG TAB PO SCH (21:56)
[2024-04-16] MEDS: Thiamine 100 MG TAB PO SCH (22:01)
[2024-04-17] MEDS: Labetalol HCl 100 MG/20 ML VIAL SLOW IVP PRN (01:23)
[2024-04-17 05:43] LABS: Anion Gap 12 mmol/L (10-20); Calc. Creatinine Clearance 167 mL/min (70-130); Calcium 9.1 mg/dL (7.8-10.44); Carbon Dioxide 23 mmol/L (22-29); Chloride 105 mmol/L (98-107); Estimated GFR 120; Glucose 108 mg/dL (70-105); Magnesium 1.6 mg/dL (1.6-2.6); Phosphorus 3.3 mg/dL (2.3-4.7); Potassium 3.1 mmol/L (3.5-5.1); Sodium 137 mmol/L (136-145)
[2024-04-17 05:51] LABS: BUN (Urea Nitrogen) 7 mg/dL (8.9-20.6)
[2024-04-17] MEDS: Magnesium 2 GM/50 ML(in water) 2 GM in Premix 1 BAG IVPB SCH (08:56)
[2024-04-17] MEDS: Potassium Chloride 20 MEQ TAB PO SCH ×2 (10:25→20:35)
[2024-04-17 12:34] LABS: #Basophils 0.12 10x3/uL (0.0-0.2); %Basophils 0.7 % (0.0-1.0); %Eosinophils 2.8 % (0.0-10.0); %Lymphocytes 38.4 % (21.0-51.0); %Monocytes 10.1 % (0.0-10.0); %Neutrophils 47.4 % (42.0-75.0); Hematocrit 46.5 % (42.0-52.0); Hemoglobin 14.8 g/dL (14.0-18.0); Mean Corpuscular HGB CONC 31.8 g/dL (32.0-36.0); Mean Corpuscular Hemoglobin 32.8 pg (27.0-31.0); Mean Corpuscular Volume 103.1 fL (78.0-98.0); Mean Platelet Volume 10.4 fL (7.4-10.4); Platelet Count 211 10x3/uL (130-400); RBC Distribution Width 14.6 % (11.5-14.5); Red Blood Cell (RBC) Count 4.51 mill/uL (4.70-6.10)
[2024-04-17 12:51] LABS: ALT (SGPT) 118 U/L (8-55); AST (SGOT) 185 U/L (5-34); Albumin 3.9 g/dL (3.5-5.0); Alkaline Phosphatase 192 U/L (40-110); Anion Gap 27 mmol/L (10-20); BUN (Urea Nitrogen) 8 mg/dL (8.9-20.6); Bilirubin, Total 2.8 mg/dL (0.2-1.2); Calc. Creatinine Clearance 152 mL/min (70-130); Calcium 10.1 mg/dL (7.8-10.44); Carbon Dioxide 9 mmol/L (22-29); Chloride 108 mmol/L (98-107); Estimated GFR 117; Globulin 3.7 g/dL (2.4-3.5); Glucose 141 mg/dL (70-105); Magnesium 2.5 mg/dL (1.6-2.6); Potassium 3.3 mmol/L (3.5-5.1); Protein, Total 7.6 g/dL (6.0-8.3); Sodium 141 mmol/L (136-145)
[2024-04-17 13:18] LABS: Actual Bicarbonate (HCO3a) 20.4 mEq/L (22-28); Base Excess (BEa) -2.4 mEq/L (-2.0 to +3.0); CO2 Tension 29.9 mmHg (35.0-45.0); Calcium, Ionized (arterial) 1.19 mmol/L (1.12-1.30); Carboxyhemoglobin (COHb) 1.1 gm% (0.0-3.0); Hematocrit-ABG 42 % (42.0-52.0); Hemoglobin (Hb) 14.2 g/dL (14.0-18.0); O2 Tension (PaO2), arterial 64.7 mmHg (80.0-100.0); Potassium - ABG Lab 3.64 mmol/L (3.70-5.30); pH, Arterial 7.451 (7.35-7.45)
[2024-04-17] MEDS: Sodium Chloride 0.9% 1,000 ML IV SCH (13:33)
[2024-04-17] MEDS: ALPRAZolam 0.5 MG TAB PO SCH ×2 (17:01→20:35)
[2024-04-17] MEDS: fentaNYL 50 mcg/mL 1 mL Vial SLOW IVP PRN (17:03)
[2024-04-18 05:41] LABS: Anion Gap 13 mmol/L (10-20); BUN (Urea Nitrogen) 6 mg/dL (8.9-20.6); Calc. Creatinine Clearance 184 mL/min (70-130); Calcium 9.2 mg/dL (7.8-10.44); Carbon Dioxide 19 mmol/L (22-29); Chloride 110 mmol/L (98-107); Estimated GFR 124; Glucose 88 mg/dL (70-105); Magnesium 1.7 mg/dL (1.6-2.6); Phosphorus 3.4 mg/dL (2.3-4.7); Potassium 3.2 mmol/L (3.5-5.1); Sodium 139 mmol/L (136-145)
[2024-04-18 09:12] LABS: ALT (SGPT) 106 U/L (8-55); AST (SGOT) 115 U/L (5-34); Albumin 3.2 g/dL (3.5-5.0); Alkaline Phosphatase 152 U/L (40-110); Bilirubin, Direct 0.8 mg/dL (0.1-0.3); Bilirubin, Total 1.8 mg/dL (0.2-1.2)
[2024-04-18] MEDS: Potassium Chloride 20 MEQ in Premix 1 BAG IVPB SCH (09:35)
[2024-04-18] MEDS: Magnesium 2 GM/50 ML(in water) 2 GM in Premix 1 BAG IVPB SCH (09:35)
[2024-04-18 09:45] LABS: Puncture Site RRA
[2024-04-18 09:46] LABS: ALV-art Gradient 47.655 mmHg (0-20)
[2024-04-18] MEDS ORDERED: hydrALAZINE 20 MG/ML VIAL SLOW IVP PRN (16:51)
[2024-04-18] MEDS: Lorazepam 0.5 MG TAB PO PRN (22:32)
[2024-04-19 04:17] LABS: #Basophils 0.05 10x3/uL (0.0-0.2); %Basophils 0.6 % (0.0-1.0); %Eosinophils 3.1 % (0.0-10.0); %Lymphocytes 27.8 % (21.0-51.0); %Monocytes 10.2 % (0.0-10.0); %Neutrophils 57.9 % (42.0-75.0); Hematocrit 36.6 % (42.0-52.0); Hemoglobin 12.5 g/dL (14.0-18.0); Mean Corpuscular HGB CONC 34.2 g/dL (32.0-36.0); Mean Corpuscular Hemoglobin 32.8 pg (27.0-31.0); Mean Corpuscular Volume 96.1 fL (78.0-98.0); Platelet Count 201 10x3/uL (130-400); RBC Distribution Width 14.2 % (11.5-14.5); Red Blood Cell (RBC) Count 3.81 mill/uL (4.70-6.10)
[2024-04-19 04:41] LABS: ALT (SGPT) 156 U/L (8-55); AST (SGOT) 131 U/L (5-34); Albumin 3.4 g/dL (3.5-5.0); Alkaline Phosphatase 155 U/L (40-110); Anion Gap 17 mmol/L (10-20); BUN (Urea Nitrogen) 5 mg/dL (8.9-20.6); Bilirubin, Total 1.5 mg/dL (0.2-1.2); Calc. Creatinine Clearance 171 mL/min (70-130); Calcium 9.4 mg/dL (7.8-10.44); Carbon Dioxide 18 mmol/L (22-29); Chloride 107 mmol/L (98-107); Estimated GFR 121; Globulin 3.2 g/dL (2.4-3.5); Glucose 94 mg/dL (70-105); Magnesium 1.5 mg/dL (1.6-2.6); Phosphorus 3.6 mg/dL (2.3-4.7); Potassium 3.5 mmol/L (3.5-5.1); Protein, Total 6.6 g/dL (6.0-8.3); Sodium 138 mmol/L (136-145)
[2024-04-19] MEDS: Magnesium 2 GM/50 ML(in water) 2 GM in Premix 1 BAG IVPB SCH (05:21)
[2024-04-19] MEDS: Potassium Chloride 20 MEQ in Premix 1 BAG IVPB SCH (11:16)
[2024-04-19 14:07] VITALS: BMI 29.3
[2024-04-20 04:31] LABS: #Basophils 0.05 10x3/uL (0.0-0.2); %Basophils 0.6 % (0.0-1.0); %Eosinophils 3.6 % (0.0-10.0); %Lymphocytes 30.8 % (21.0-51.0); %Monocytes 9.2 % (0.0-10.0); %Neutrophils 55.4 % (42.0-75.0); Hemoglobin 12.7 g/dL (14.0-18.0); Mean Corpuscular HGB CONC 34.3 g/dL (32.0-36.0); Mean Corpuscular Hemoglobin 33.4 pg (27.0-31.0); Mean Corpuscular Volume 97.4 fL (78.0-98.0); Mean Platelet Volume 9.8 fL (7.4-10.4); Platelet Count 211 10x3/uL (130-400); RBC Distribution Width 13.7 % (11.5-14.5)
[2024-04-20 04:59] LABS: ALT (SGPT) 183 U/L (8-55); AST (SGOT) 130 U/L (5-34); Albumin 3.5 g/dL (3.5-5.0); Alkaline Phosphatase 154 U/L (40-110); Anion Gap 16 mmol/L (10-20); BUN (Urea Nitrogen) 5 mg/dL (8.9-20.6); Bilirubin, Total 1.3 mg/dL (0.2-1.2); Calc. Creatinine Clearance 187 mL/min (70-130); Calcium 9.5 mg/dL (7.8-10.44); Carbon Dioxide 18 mmol/L (22-29); Chloride 107 mmol/L (98-107); Estimated GFR 124; Globulin 3.1 g/dL (2.4-3.5); Glucose 85 mg/dL (70-105); Magnesium 1.5 mg/dL (1.6-2.6); Potassium 3.6 mmol/L (3.5-5.1); Protein, Total 6.6 g/dL (6.0-8.3); Sodium 137 mmol/L (136-145)
[2024-04-20] MEDS: Magnesium 2 GM/50 ML(in water) 2 GM in Premix 1 BAG IVPB SCH (05:26)
[2024-04-20] MEDS: Magnesium Oxide 400 MG TAB PO SCH (15:04)
[2024-04-21 04:17] LABS: #Basophils 0.03 10x3/uL (0.0-0.2); %Basophils 0.4 % (0.0-1.0); %Eosinophils 3.8 % (0.0-10.0); %Lymphocytes 33.1 % (21.0-51.0); %Monocytes 9.6 % (0.0-10.0); %Neutrophils 52.6 % (42.0-75.0); Hematocrit 37.8 % (42.0-52.0); Mean Corpuscular HGB CONC 34.4 g/dL (32.0-36.0); Mean Corpuscular Hemoglobin 33.6 pg (27.0-31.0); Mean Corpuscular Volume 97.7 fL (78.0-98.0); Mean Platelet Volume 9.9 fL (7.4-10.4); Platelet Count 270 10x3/uL (130-400); RBC Distribution Width 13.7 % (11.5-14.5); Red Blood Cell (RBC) Count 3.87 mill/uL (4.70-6.10)
[2024-04-21 04:46] LABS: ALT (SGPT) 188 U/L (8-55); AST (SGOT) 117 U/L (5-34); Albumin 3.5 g/dL (3.5-5.0); Alkaline Phosphatase 141 U/L (40-110); Anion Gap 13 mmol/L (10-20); BUN (Urea Nitrogen) 6 mg/dL (8.9-20.6); Calc. Creatinine Clearance 182 mL/min (70-130); Calcium 9.5 mg/dL (7.8-10.44); Carbon Dioxide 20 mmol/L (22-29); Chloride 107 mmol/L (98-107); Estimated GFR 123; Glucose 91 mg/dL (70-105); Magnesium 1.6 mg/dL (1.6-2.6); Potassium 3.6 mmol/L (3.5-5.1); Protein, Total 6.5 g/dL (6.0-8.3); Sodium 136 mmol/L (136-145)
[2024-04-21] MEDS: Magnesium 2 GM/50 ML(in water) 2 GM in Premix 1 BAG IVPB SCH (09:37)
[2024-04-21 12:53] VITALS: BP 135/89; TEMP 98.1
== END 2024-04-21 16:30 | disposition home or self-care (01) | DRG 439 ==
LOC: ERS 14:44 → 2NO 20:52
PROVIDERS: ADMIT Hospitalist; ATTEND Internal Medicine
PROC: 4A00X4Z Measurement of Central Nervous Electrical Activity, External Approach (ICD-10-PCS; principal; 2024-04-17)
PROC: 4A033R1 Measurement of Arterial Saturation, Peripheral, Percutaneous Approach (ICD-10-PCS; 2024-04-17)
DX: K85.20 Alcohol induced acute pancreatitis without necrosis or infection (principal); E87.20 Acidosis, unspecified; F17.210 Nicotine dependence, cigarettes, uncomplicated; K70.10 Alcoholic hepatitis without ascites; F17.290 Nicotine dependence, other tobacco product, uncomplicated; E83.42 Hypomagnesemia; F10.129 Alcohol abuse with intoxication, unspecified; K86.0 Alcohol-induced chronic pancreatitis; E63.9 Nutritional deficiency, unspecified; I16.0 Hypertensive urgency; R00.1 Bradycardia, unspecified; Z88.0 Allergy status to penicillin; Z79.899 Other long term (current) drug therapy; Z71.41 Alcohol abuse counseling and surveillance of alcoholic; Z71.6 Tobacco abuse counseling; Z90.49 Acquired absence of other specified parts of digestive tract; E87.6 Hypokalemia; Y90.6 Blood alcohol level of 120-199 mg/100 ml
CPT/HCPCS: 36415; 36416; 36600; 71045; 74177; 74181; 76377; 80048; 80053; 80076; 80306; 80307; 81001; 82550; 82805; 83690; 83735; 84100; 84146; 84484; 85025; 93005; 95816; 95819; 96365; 96375; 96376; C9113; J0360; J1170; J2270; J2405; J2550; J3010; J3411; J3475; J3480; J3490; J7030; J7050; J7120; Q0162; Q9967